=== PATIENT | female | born 1935 | race Caucasian/White ===

== ENCOUNTER → 2017-01-01 | Outpatient (CLI) | payer MEDICARE, OTHER ==
[~2017-01-01] MED LIST: BACITRACIN15 G1 TP; CALTRATE-600 D600 MG PO; COLACE-DPS100 MG PO; DAILY MULTIPLE1 EAC1 PO; DIFLUCAN DPS150 MG PO; FLEXERIL DPS5 MG PO; L-LYSINE500 M1 PO; LANSOPRAZOLE30 MG PO; LASIX DPS40 MG PO; LEVOTHYROXINE50 MCG PO; LOTRIMIN 1% DPS30 ML TP; LUTEIN20 MG PO; LYRICA200 MG PO; METAXALONE800 MG PO; MILK OF MAGNESI10 ML PO; MISOPROSTOL200 MCG PO; OMNICEF DPS300 MG PO; PERCOCET 5 DPS1 TAB PO; PROLIA60 MG/ML SQ; TYLENOL DPS325 MG PO; ULTRAM DPS50 MG PO; VASOTEC DPS2.5 MG PO; VITAMIN D1000 UNI1 PO
== END | disposition home or self-care (01) ==
LOC: RAD.S 12-25 09:15
DX: M50.20 Other cervical disc displacement, unspecified cervical region (principal); R29.2 Abnormal reflex; R20.0 Anesthesia of skin; R29.898 Other symptoms and signs involving the musculoskeletal system; Z98.1 Arthrodesis status; M47.22 Other spondylosis with radiculopathy, cervical region; M48.02 Spinal stenosis, cervical region; M43.14 Spondylolisthesis, thoracic region

== ENCOUNTER → 2017-01-15 | Outpatient (CLI) | payer MEDICARE, OTHER | END | disposition home or self-care (01) | LOC: PTH.S 08:21 | DX: Z01.812 Encounter for preprocedural laboratory examination (principal); M54.12 Radiculopathy, cervical region; R29.898 Other symptoms and signs involving the musculoskeletal system; M48.02 Spinal stenosis, cervical region; Z98.1 Arthrodesis status ==

== ENCOUNTER 2017-01-22 05:49 | Inpatient (IN) | payer MEDICARE, OTHER ==
[~2017-01-22] VITALS: Ht 152.4 cm; Wt 104.2 kg
--- NOTE | ~2017-01-22 | DS ---
ADMIT: 01/22/2017 RM/LOC: 529 [facility] MR#: [id number] [facility]#: [id number] [address] [address] EDDIE MCCLELLAND [address] [place] [address] General Discharge Summary SEX: F AGE: 81 : 1935 ADMISSION DATE: 01/22/2017 DISCHARGE DATE: 01/24/2017 SERVICE: Neurosurgery. REASON FOR ADMISSION: 1. Cervical stenosis with myelopathy. 2. History of cervicalgia. 3. Cervical radiculopathy. 4. Right arm weakness. PROCEDURES: Cervical 2 through 4 laminectomy with 2 through 5 fusion with iliac crest graft. HOSPITAL COURSE: Ms. Mcclelland tolerated her procedure well. Postoperatively, she was taken to the Med/Surg floor for monitoring and care. Postop day #1, she was awake and alert. She was afebrile, and her vital signs were stable. She was moving all extremities x4. She was complaining of some numbness to her fingers, but stated it was getting better. The incision was clean, dry, and intact. Her MARITA drain was patent with serosanguineous drainage. She did work with Physical Therapy and Occupational Therapy and tolerated this quite well. Postop day #2, she was awake and alert. She was afebrile, and her vital signs were stable. She was moving all extremities x4 with 5/5 strength. Her incision was clean, dry, and intact. Her MARITA drain was patent with serosanguineous drainage. It was discontinued without difficulty. She was ambulating, urinating, and defecating per her norm and was requesting discharge home. DISCHARGE CONDITION: Good. MEDICATIONS: 1. Colace 100 mg p.o. b.i.d. 2. Milk of magnesia 10 mL p.o. q.a.m. p.r.n. 3. Bacitracin ointment to her incision q.p.m. x14 days. 4. Percocet 5/325, 1 to 2 p.o. q.4 hours p.r.n. 5. Tylenol 650 mg p.o. q.4 hours p.r.n. 6. Metaxalone 400 mg daily. 7. Misoprostol 200 mcg b.i.d. 8. Enalapril 2.5 mg at bedtime. 9. Clotrimazole 1% cream b.i.d. to affected areas. 10.Fluconazole 150 mg as prescribed at home. 11.Lansoprazole 30 mg daily. 12.Tramadol 50 mg b.i.d. p.r.n. 13.Cefdinir 300 mg finished what was prescribed at home. 14.Cyclobenzaprine 5 mg at bedtime. 15.Levothyroxine 50 mcg daily. 16.Lyrica 200 mg b.i.d. 17.Lasix 40 mg daily p.r.n. 18.Prolia 60 mg every 6 months. ADMIT: 01/22/2017 RM/LOC: 529 [facility] MR#: [id number] [address] [address] EDDIE MCCLELLAND [id number] [place] [address] General Discharge Summary SEX: F AGE: 81 : 1935 19.Calcium 1200 mg daily. 20.Vitamin D 1000 units daily. 21.Lutein 20 mg daily. 22.Multivitamin daily. 23.L-lysine 2000 mg daily. DISCHARGE INSTRUCTIONS: Per Dr. Portillo, she can have a regular diet. She may shower. She should not take any tub baths, she should pat her incision dry. She should not lift anything greater than 15 pounds. She should not take any NSAIDs. She should not take any nicotine. She should wear cervical collar at all times when she is out of bed. She may have it off to shower. She will call with any questions or concerns including neurological worsening, signs or symptoms infection, or any other issues. FOLLOWUP: She will follow up with Bryanna in clinic in 2 weeks. DISPOSITION: She was discharged home. Total [id number] time for the discharge planning and care coordination was 30 minutes. Bryanna Boone APRN / Don Portillo MD / milvia JOB #: [id number] CC: Don Portillo MD, Attending Physician Juan M Hannah MD, Family Physician
[2017-01-25] MEDS ORDERED: METAXALONE800 MG PO (10:13)
[2017-01-25] MEDS ORDERED: VASOTEC DPS2.5 MG PO (10:14)
[2017-01-25] MEDS ORDERED: LOTRIMIN 1% DPS30 ML TP (10:15)
[2017-01-25] MEDS ORDERED: MISOPROSTOL200 MCG PO (10:15)
[2017-01-25] MEDS ORDERED: ULTRAM DPS50 MG PO (10:17)
[2017-01-25] MEDS ORDERED: DIFLUCAN DPS150 MG PO (10:17)
[2017-01-25] MEDS ORDERED: LANSOPRAZOLE30 MG PO (10:17)
[2017-01-25] MEDS ORDERED: OMNICEF DPS300 MG PO (10:18)
[2017-01-25] MEDS ORDERED: FLEXERIL DPS5 MG PO (10:18)
[2017-01-25] MEDS ORDERED: LEVOTHYROXINE50 MCG PO (10:18)
[2017-01-25] MEDS ORDERED: LASIX DPS40 MG PO (10:19)
[2017-01-25] MEDS ORDERED: LYRICA200 MG PO (10:19)
[2017-01-25] MEDS ORDERED: PROLIA60 MG/ML SQ (10:19)
[2017-01-25] MEDS ORDERED: VITAMIN D1000 UNI1 PO (10:20)
[2017-01-25] MEDS ORDERED: CALTRATE-600 D600 MG PO (10:20)
[2017-01-25] MEDS ORDERED: LUTEIN20 MG PO (10:20)
[2017-01-25] MEDS ORDERED: L-LYSINE500 M1 PO (10:21)
[2017-01-25] MEDS ORDERED: COLACE-DPS100 MG PO (10:21)
[2017-01-25] MEDS ORDERED: DAILY MULTIPLE1 EAC1 PO (10:21)
[2017-01-25] MEDS ORDERED: BACITRACIN15 G1 TP (10:22)
[2017-01-25] MEDS ORDERED: TYLENOL DPS325 MG PO (10:22)
[2017-01-25] MEDS ORDERED: MILK OF MAGNESI10 ML PO (10:22)
[2017-01-25] MEDS ORDERED: PERCOCET 5 DPS1 TAB PO (10:22)
--- NOTE | 2017-01-26 08:38 | OR ---
ADMIT: 01/22/2017 RM/LOC: 529 [facility] MR#: [id number] [address] [address] EDDIE [place] [address] [address] [place] [address] Operative/Delivery Room Report SEX: F AGE: 81 : 1935 SURGERY DATE: 01/22/2017 SURGEON: Don Portillo MD PREOPERATIVE DIAGNOSES: Severe cervical stenosis with worsening hand function from radiculopathy on cervical 2-3 and 3-4, prior cervical fusion below. POSTOPERATIVE DIAGNOSES: Severe cervical stenosis with worsening hand function from radiculopathy on cervical 2-3 and 3-4, prior cervical fusion below. PROCEDURES: 1. Cervical 2-3 and 3-4 as well as down to 4-5 laminectomy with foraminotomy where necessary, medial cutting of the facets where necessary. 2. Placement of bilateral lateral mass screws on cervical 3 and 5, with left- sided lateral mass screws on cervical 4. There was a weak bone and an outfracture of the right cervical 4 lateral mass. 3. Stereotactic-guided pedicle screw placement in cervical 2. 4. Posterolateral arthrodesis with autograft harvested from the same incision that was morcellated and reimplanted. 5. Intraoperative computed tomographic imaging as well as fluoroscopy. 6. Intraoperative neuromonitoring with no change from baseline at the end of the case. ASSISTANT PROFESSOR OF SPANISH: None. This case was substantially more difficult than usual secondary to the patient's body habitus causing difficulty with positioning as well as the depth and amount of distance needed to reach the spinal canal as well as poor bone quality leading to decreased utility with intraoperative stereotaxy and CT scan. DESCRIPTION OF PROCEDURE: After gaining informed consent, the patient was taken up to the operative theater, placed under general endotracheal anesthesia in supine position and turned prone very cautiously on the Darius table, all pressure points purposely padded prior to performing the procedure. She was prepped and draped in the usual sterile fashion. A time-out was utilized to ascertain the correct site and side of surgery as well as other pertinent patient historical information. Counts were obtained at the beginning and end of the case with no change betwixt the 2. Antibiotics were given within 1 hour of incision. The fluoroscope was brought into the field and the posterior neck was incised. This was then taken down to the substantial adipose and subcutaneous tissue down to the posterior spinal column. Once this was completed from cervical 2 through cervical 5 was dissected free revealing the lateral masses from the spinous process out to the lateral aspect of the lateral masses. Pristine hemostasis was obtained and attention was turned to lateral mass screw implantation. ADMIT: 01/22/2017 RM/LOC: 529 [facility] MR#: [id number] [address] [address] EDDIE DE LA FU[place]E [id number] [place] [address] Operative/Delivery Room Report SEX: F AGE: 81 : 1935 The holes were drilled 1 mm inferomedial to the geographic center of the lateral mass and then hand-drilled to 14 mm. The holes were then sounded and vancomycin powder coated screws were implanted into the lateral masses. The lateral masses cervical 4 on the right was fairly soft with poor bone quality and would not retain the screw with some outfracture noted after multiple attempts to obtain screw placement. Screw was left out of this hole, but was placed bilaterally at cervical 3 and cervical 5 and unilaterally on the left at cervical 4. Once this was completed, attention was turned to laminectomy. The high-speed drill was utilized to drill through the laminofacet junction and then out towards the foramen at cervical 2-3, 3-4, and 4-5. Initially, the plan was to leave 4-5 alone, but the hypertrophic overgrown ligaments visualized during the dissection appeared to necessitate evacuation of neuroforamen as well. Once this was completed bilaterally, a partial piecemeal and then subsequently en bloc laminectomy was fashioned at the 2-3, 3-4, and 4- 5 levels. This was stripped of soft tissue and morcellated for reimplantation later. At this point, attention was turned to the C2 pedicle screws. The [employer] system was attached to the C2 spinous process and CT scan was obtained. This had reasonably reliable accuracy, although due to her poor bone quality and body habitus, the imaging was less than optimal. I was able to utilize this as well as spot fluoroscopy to delineate the posterolateral representation of the pedicles and then hand-drilled to 24 mm. A 26 mm vancomycin powder screws were implanted bilaterally after sounding to ensure bony anatomy at 360 degrees and at depth, there was no sign of complication. At this point, any remaining bone overlying the neuroforamina or superior C2 was drilled off as wide as necessary. Thecal sac was widely decompressed and pristine hemostasis was obtained. The posterior instrumentation was then placed including a cross-connector and then it was torqued to appropriate setting. After this was completed, MARITA drain was daylighted out. The posterolateral aspect of the lateral masses as well as the posterior presentation of the facet joints study were decorticated and the autograft ADMIT: 01/22/2017 RM/LOC: 529 [facility] MR#: [id number] [place] [id number] EDDIE [place] [address] [place] [address] Operative/Delivery Room Report SEX: F AGE: 81 : 1935 harvested through the same incision was then packed into this region. Once this was completed, pristine hemostasis was obtained. The nuchal fascia was closed with simple running 0 Ethibond, simple interrupted 2-0 Vicryl was used in the hypodermic tissue, and locked running 3-0 nylon was used on the skin. COMPLICATIONS: None. ESTIMATED BLOOD LOSS: Charted. SPECIMEN: None. DISPOSITION: Extubated and taken to postanesthesia care unit. Don Portillo MD/ milvia JOB #: [id number] CC: Don Portillo MD, Attending Physician Juan M Hannah MD, Family Physician
== END 2017-01-24 16:13 | disposition home or self-care (01) | DRG 29 ==
LOC: WOR 05:49 → 5MS 11:19
PROVIDERS: ADMIT Neurological Surgery
PROC: 0RG2071 Fusion of 2 or more Cervical Vertebral Joints with Autologous Tissue Substitute, Posterior Approach, Posterior Column, Open Approach (ICD-10-PCS; principal; 2017-01-22)
DX: M54.12 Radiculopathy, cervical region (principal); M47.12 Other spondylosis with myelopathy, cervical region; Z68.41 Body mass index [BMI] 40.0-44.9, adult; E66.01 Morbid (severe) obesity due to excess calories; M50.20 Other cervical disc displacement, unspecified cervical region; M51.36 Other intervertebral disc degeneration, lumbar region; E03.9 Hypothyroidism, unspecified; M54.16 Radiculopathy, lumbar region; M19.90 Unspecified osteoarthritis, unspecified site; M43.06 Spondylolysis, lumbar region; M48.06 Spinal stenosis, lumbar region; M62.81 Muscle weakness (generalized); R29.898 Other symptoms and signs involving the musculoskeletal system; R32 Unspecified urinary incontinence; K57.90 Diverticulosis of intestine, part unspecified, without perforation or abscess without bleeding; J45.909 Unspecified asthma, uncomplicated; R20.0 Anesthesia of skin; Z98.1 Arthrodesis status